=== PATIENT | male | born 1950 | race African-American/Black ===

== ENCOUNTER → 2017-05-18 | Outpatient (CLI) | payer MEDICARE, BC ==
--- NOTE | 2017-05-18 16:27 | RAD ---
Three-view left hand radiographs 05/18/2017 Clinical history: Left hand pain. PA, lateral and oblique digital radiographs of the left hand were obtained. No fracture or dislocation of the left hand is seen. Mild degenerative changes are seen scattered throughout the interphalangeal joints of the left hand along with the first MCP joint. Impression: Mild degenerative changes are seen involving the left hand. No acute osseous abnormality is seen.
== END | disposition home or self-care (01) ==
LOC: PMG 09:23
PROVIDERS: ATTEND Physician Assistant Medical
DX: M19.042 Primary osteoarthritis, left hand (principal)
CPT/HCPCS: 73130